=== PATIENT | female | born 1950 | race Caucasian/White ===

== ENCOUNTER 2018-03-09 12:52 | Day surgery (SDC) | payer OTHER ==
[2018-03-01 15:14] VITALS: BMI 35.2
[2018-03-09] MEDS ORDERED: oxyCODONE HCL 5 MG TABLET PO PRN ×2 (14:22)
[2018-03-09] MEDS ORDERED: ONDANSETRON 4 MG/2 ML VIAL IVPUSH PRN (14:22)
[2018-03-09] MEDS ORDERED: BUPIVACAINE HCL/PF 0.5% (5MG/ML) 10 ML VIAL ONE ×2 (14:24→14:54)
[2018-03-09] MEDS ORDERED: MORPHINE 5 MG/10 ML AMP - FOR COMPOUNDING USE ONLY ONE (14:25)
[2018-03-09] MEDS ORDERED: morphine CARPU-JECT 10 MG/1 ML DISP.SYRIN ONE (14:27)
[2018-03-09] MEDS ORDERED: LACTATED RINGERS SOLUTION 1,000 ML IV SCH (14:30)
[2018-03-09] MEDS ORDERED: MIDAZOLAM HCL 2 MG/2 ML SINGLE DOSE VIAL ONE (14:38)
[2018-03-09] MEDS ORDERED: LIDOCAINE HCL/PF 2% SDV 5ML VIAL ONE (14:41)
[2018-03-09] MEDS ORDERED: PROPOFOL 20 ML ONE ×2 (14:54→14:59)
[2018-03-09] MEDS ORDERED: SODIUM CHLORIDE 0.9% P/F 10 ML VIAL IJ ONE (15:06)
[2018-03-09] MEDS ORDERED: BUPIVACAINE HCL/PF 0.5% (5MG/ML) 10 ML VIAL IJ ONE ×2 (15:11→15:26)
[2018-03-09] MEDS ORDERED: morphine CARPU-JECT 10 MG/1 ML DISP.SYRIN NR ONE (15:26)
[2018-03-09 16:55] VITALS: PULSE 72; TEMP 97.8
[2018-03-09 17:35] VITALS: BP 123/70
--- NOTE | 2018-03-10 12:27 | OP ---
DATE OF OPERATION: 03/09/2018 PREOPERATIVE DIAGNOSIS: Tearing of the medial meniscus to the right knee. POSTOPERATIVE DIAGNOSIS: Torn medial and lateral menisci to the right knee, with hypertrophic synovium, chondromalacia and joint debris. PROCEDURE PERFORMED: Operative arthroscopy of the right knee with partial medial and lateral meniscectomy, chondroplasty, synovectomy and joint debridement. SURGEON: Cynthia Velasquez M.D. BOX SHOOK PATCHER: KENNEDY Mejia ANESTHESIOLOGIST: Cristo Hopkins M.D. ANESTHESIA: General. DESCRIPTION OF PROCEDURE: The patient was brought to the operating room and gently transferred from the stretcher to the OR table, with all bony prominences well padded. The right leg was prepared and draped in a sterile fashion. The patient was given intravenous antibiotics and copious irrigation throughout the procedure to minimize the risk of infection. A complete risk/benefit discussion was conducted with the patient, which was inclusive of but not limited to infection, bleeding, , paralysis, increased pain, need for repeat surgery. The patient asked questions, understood the procedure, and desired to proceed with surgical treatment. An appropriate time-out had been conducted, which was inclusive of but not limited to site of surgery, surgeon, anesthesiologist and type of surgery. Following sterile preparation and draping of the right leg, the leg was exsanguinated with the use of an Esmarch bandage and the tourniquet inflated to 350 mmHg. Suprapatellar medial and lateral joint line portals were used to introduce the arthroscope and arthroscopic instruments. The knee was examined. There was noted to be hypertrophic synovium in the suprapatellar pouch. Partial synovectomy was performed. The inferior surface of the patella damage consistent with chondromalacia and was smoothed using the shaver and radiofrequency wand. The medial and lateral gutters were without plica or loose body. The medial meniscus was noted to have a tear of the posterior horn, and this was resected using the shaver and radiofrequency wand. The intercondylar region was noted to have joint debris and joint debridement was performed. The lateral meniscus was found to have a tear of the posterior horn. This was resected using shaver, radiofrequency wand and biters of appropriate angle and shape. The knee joint was then copiously irrigated with sterile saline irrigant. The wounds were closed with 4-0 undyed Vicryl, followed by Steri-Strips, Xeroform, 4 x 4's, sterile wrap with Shawn bandage and knee immobilizer. The tourniquet was deflated after approximately 20 minutes of surgical time. There were no intraoperative complications. CYNTHIA VELASQUEZ M.D. NASIM/[id number]
== END 2018-03-09 17:37 | disposition home or self-care (01) ==
LOC: FASU 12:52
PROVIDERS: ATTEND Orthopaedic Surgery
PROC: 0SBC4ZZ Excision of Right Knee Joint, Percutaneous Endoscopic Approach (ICD-10-PCS; 2018-03-09)
PROC: 0SBC4ZZ Excision of Right Knee Joint, Percutaneous Endoscopic Approach (ICD-10-PCS; 2018-03-09)
PROC: 0SBC4ZZ Excision of Right Knee Joint, Percutaneous Endoscopic Approach (ICD-10-PCS; principal; 2018-03-09 11:30)
DX: S83.241A Other tear of medial meniscus, current injury, right knee, initial encounter (principal); S83.281A Other tear of lateral meniscus, current injury, right knee, initial encounter; M67.261 Synovial hypertrophy, not elsewhere classified, right lower leg; M25.862 Other specified joint disorders, left knee; M22.41 Chondromalacia patellae, right knee; X58.XXXA Exposure to other specified factors, initial encounter; Y93.89 Activity, other specified; Y92.89 Other specified places as the place of occurrence of the external cause
CPT/HCPCS: 94760; 97116-GP

== ENCOUNTER 2022-05-30 06:29 | Day surgery (SDC) | payer OTHER ==
[2022-05-26 13:59] VITALS: BMI 32.9
[2022-05-30] MEDS ORDERED: SUCCINYLCHOLINE CHLORIDE 200 MG/10 ML SYRINGE ONE (07:12)
[2022-05-30] MEDS ORDERED: PROPOFOL 20 ML ONE ×4 (07:12→08:19)
[2022-05-30] MEDS ORDERED: ONDANSETRON 4 MG/2 ML VIAL ONE (07:18)
[2022-05-30] MEDS ORDERED: LIDOCAINE HCL/PF 2% SDV 5ML VIAL ONE (07:18)
[2022-05-30] MEDS ORDERED: DEXAMETHASONE SOD PHOSPHATE 4 MG/1 ML VIAL ONE (07:18)
[2022-05-30] MEDS ORDERED: GLYCOPYRROLATE 0.2 MG/1 ML VIAL ONE (07:22)
[2022-05-30] MEDS ORDERED: BUPIVACAINE HCL 100 ML ONE (07:29)
[2022-05-30] MEDS ORDERED: MORPHINE SULFATE 10 MG/1 ML *VIAL ONE (07:58)
[2022-05-30] MEDS ORDERED: CLINDAMYCIN 600MG PREMIX IVPB 600 MG/50 ML BAG IVPB ONE (08:23)
[2022-05-30] MEDS ORDERED: BUPIVACAINE HCL 50 ML ONE (08:58)
[2022-05-30] MEDS ORDERED: ONDANSETRON 4 MG/2 ML VIAL IVPUSH PRN (09:36)
[2022-05-30] MEDS ORDERED: ACETAMINOPHEN 325 MG TABLET (FP) PO PRN (09:36)
[2022-05-30] MEDS ORDERED: oxyCODONE HCL 5 MG TABLET PO PRN ×2 (09:36→12:52)
[2022-05-30] MEDS ORDERED: LACTATED RINGERS SOLUTION 1,000 ML IV SCH (09:45)
[2022-05-30 09:57] VITALS: TEMP 97.7
[2022-05-30] MEDS ORDERED: ACETAMINOPHEN 325 MG TABLET (FP) ONE (10:40)
[2022-05-30 11:36] VITALS: RESP 18
[2022-05-30 12:17] VITALS: BP 130/74; PULSE 91
== END 2022-05-30 12:10 | disposition home or self-care (01) ==
LOC: FASU 06:29
PROVIDERS: ATTEND Orthopaedic Surgery
PROC: 0SBD4ZZ Excision of Left Knee Joint, Percutaneous Endoscopic Approach (ICD-10-PCS; 2022-05-30)
PROC: 0SQD4ZZ Repair Left Knee Joint, Percutaneous Endoscopic Approach (ICD-10-PCS; 2022-05-30)
PROC: 0SBD4ZZ Excision of Left Knee Joint, Percutaneous Endoscopic Approach (ICD-10-PCS; 2022-05-30)
PROC: 0SQD4ZZ Repair Left Knee Joint, Percutaneous Endoscopic Approach (ICD-10-PCS; 2022-05-30)
PROC: 0SBD4ZZ Excision of Left Knee Joint, Percutaneous Endoscopic Approach (ICD-10-PCS; principal; 2022-05-30 08:51)
DX: S83.242A Other tear of medial meniscus, current injury, left knee, initial encounter (principal); S83.282A Other tear of lateral meniscus, current injury, left knee, initial encounter; M25.662 Stiffness of left knee, not elsewhere classified; M93.262 Osteochondritis dissecans, left knee; M94.262 Chondromalacia, left knee; M67.262 Synovial hypertrophy, not elsewhere classified, left lower leg; M25.862 Other specified joint disorders, left knee; X58.XXXA Exposure to other specified factors, initial encounter; Y93.9 Activity, unspecified; Y92.9 Unspecified place or not applicable
CPT/HCPCS: 94760

== ENCOUNTER 2022-08-12 07:20 | Day surgery (SDC) | payer OTHER ==
[2022-08-10 17:33] VITALS: BMI 31.6
[2022-08-12] MEDS ORDERED: LIDOCAINE HCL 2% 100 MG/5 ML DISP.SYRIN ONE (08:58)
[2022-08-12] MEDS ORDERED: MIDAZOLAM HCL 2 MG/2 ML SINGLE DOSE VIAL ONE (08:59)
[2022-08-12] MEDS ORDERED: PROPOFOL 20 ML ONE (08:59)
[2022-08-12] MEDS ORDERED: BUPIVACAINE HCL/PF 0.5% (5MG/ML) 10 ML VIAL ONE (09:08)
[2022-08-12] MEDS ORDERED: MORPHINE SULFATE 10 MG/1 ML *VIAL ONE (09:40)
[2022-08-12] MEDS ORDERED: DEXAMETHASONE SOD PHOSPHATE 4 MG/1 ML VIAL ONE (09:41)
[2022-08-12] MEDS ORDERED: ceFAZolin SODIUM 1 GM VIAL ONE (09:42)
[2022-08-12] MEDS ORDERED: ONDANSETRON 4 MG/2 ML VIAL ONE (10:34)
[2022-08-12] MEDS ORDERED: KETOROLAC TROMETHAMINE 30 MG/1 ML VIAL ONE (10:34)
[2022-08-12] MEDS ORDERED: ONDANSETRON 4 MG/2 ML VIAL IVPUSH PRN (10:54)
[2022-08-12] MEDS ORDERED: oxyCODONE HCL 5 MG TABLET PO PRN ×2 (10:54)
[2022-08-12] MEDS ORDERED: PROMETHAZINE HCL 25 MG/1 ML VIAL IVPUSH PRN (10:54)
[2022-08-12] MEDS ORDERED: LACTATED RINGERS SOLUTION 1,000 ML IV SCH (11:00)
[2022-08-12 12:05] VITALS: RESP 18; TEMP 97.7
[2022-08-12 14:10] VITALS: BP 119/68; PULSE 78
== END 2022-08-12 13:45 | disposition home or self-care (01) ==
LOC: FASU 07:20
PROVIDERS: ATTEND Orthopaedic Surgery
PROC: 0QBD4ZZ Excision of Right Patella, Percutaneous Endoscopic Approach (ICD-10-PCS; 2022-08-12)
PROC: 0SBC4ZZ Excision of Right Knee Joint, Percutaneous Endoscopic Approach (ICD-10-PCS; principal; 2022-08-12 10:01)
DX: S83.241A Other tear of medial meniscus, current injury, right knee, initial encounter (principal); S83.281A Other tear of lateral meniscus, current injury, right knee, initial encounter; M25.661 Stiffness of right knee, not elsewhere classified; M93.261 Osteochondritis dissecans, right knee; M22.41 Chondromalacia patellae, right knee; M23.41 Loose body in knee, right knee; M67.261 Synovial hypertrophy, not elsewhere classified, right lower leg; M25.861 Other specified joint disorders, right knee; X58.XXXA Exposure to other specified factors, initial encounter; Y93.9 Activity, unspecified; Y92.9 Unspecified place or not applicable
CPT/HCPCS: 94760